=== PATIENT | female | born 1980 ===

== ENCOUNTER 2017-03-17 20:53 | Emergency (ER) | payer SELFPAY ==
[2017-03-17 22:11] LABS: Basophils % (Auto) 0.4 % (0.0-1.8); Eosinophils % (Auto) 1.7 % (0.0-4.3); Hematocrit 39.8 % (30.3-42.9); Hemoglobin 12.7 gm/dl (10.1-14.3); Mean Corpuscular HGB Conc 32 % (30-34); Mean Corpuscular Volume 81 fl (79-97); Platelet Count 230 K/mm3 (140-440); Red Blood Count 4.91 M/mm3 (3.65-5.03); White Blood Count 7.2 K/mm3 (4.5-11.0)
[2017-03-17 22:12] LABS: Mean Corpuscular Hemoglobin 26 pg (28-32)
[2017-03-17 22:19] LABS: Anion Gap 16 mmol/L; BUN/Creatinine Ratio 20; Blood Urea Nitrogen 14 mg/dL (7-17); Calcium 8.7 mg/dL (8.4-10.2); Carbon Dioxide 24 mmol/L (22-30); Chloride 99.1 mmol/L (98-107); Glucose 108 mg/dL (65-100); Potassium 3.8 mmol/L (3.6-5.0); Sodium 135 mmol/L (137-145)
[2017-03-18 00:14] LABS: Bacteria,Urine 2+ /HPF (Negative); Bilirubin,Urine NEG (Negative); Blood,Urine SM (Negative); Ketones,Urine NEG (Negative); Leukocyte Esterase,Urine NEG (Negative); Mucus,Urine FEW /HPF; Nitrite,Urine NEG (Negative); Protein,Urine <15 mg/dL mg/dL (Negative); Urobilinogen,Urine < 2.0 mg/dL (<2.0)
[2017-03-18] MEDS ORDERED: REGLAN IV ONE (03:38)
[2017-03-18] MEDS ORDERED: MORPHINE IV ONE (03:38)
[2017-03-18] MEDS ORDERED: DECADRON IV ONE (04:55)
--- NOTE | 2017-03-18 04:55 | Emergency Department Report ---
HPI - General Chief Complaint: Chest Pain Time Seen by Provider: 03/18/17 04:52 - HPI HPI: This is a 36-year-old aftermath female presents to the emergency department with a few different complaints. Patient says that over the past few days she has developed some upper respiratory type symptoms such as a mixed dry and productive cough, some head congestion and sinus pressure, wheezing. She believes that those upper respiratory symptoms then cause some chest pain. However the chest pain resolved earlier today. She also had some nausea and vomiting 2 at that time as well. Her main complaint at this point is a frontal headache that appears to be behind the eyes and the patient says it feels like the discomfort you get with a sinus infection. She denies any fever , chills, sweats, abdominal pain, dysuria, vaginal bleeding or discharge. She has taken some [id number] cough and pain medications without much relief. She has a past medical history of asthma, hypertension, sarcoidosis and Marfan syndrome. She has a primary care physician but has not seen them regarding her symptoms. No recent travel or sick contacts at home. ED Past Medical Hx - Past Medical History Hx Hypertension: Yes Hx Asthma: Yes Additional medical history: SARCODOSIS - Social History Smoking Status: Never Smoker Substance Use Type: None - Medications Home Medications: Home Medications Medication Instructions Recorded Confirmed Last Taken Type Fluticasone [Flonase] 1 spray NS BID #1 bottle 03/18/17 Unknown Rx ED Review of Systems ROS: Stated complaint: CHEST PAIN, SHORT OF BREATH, X 1 WEEK Other details as noted in HPI Comment: All other systems reviewed and negative Constitutional: denies: chills, fever Eyes: denies: eye pain, eye discharge, vision change ENT: congestion. denies: throat pain Respiratory: cough, wheezing Cardiovascular: chest pain. denies: edema Gastrointestinal: nausea, vomiting. denies: abdominal pain Genitourinary: denies: urgency, dysuria, discharge Musculoskeletal: denies: back pain, joint swelling, arthralgia Skin: denies: rash, lesions Neurological: headache. denies: numbness, paresthesias Physical Exam - Physical Exam Vital Signs: Vital Signs 03/17/17 03/18/17 03/18/17 21:14 00:50 02:43 Temperature 97.7 F 98.6 F 97.9 F Pulse Rate 67 72 68 Respiratory 18 18 14 Rate Blood Pressure 143/100 143/90 Blood Pressure 139/93 [Right] O2 Sat by Pulse 98 98 100 Oximetry 03/18/17 03/18/17 03/18/17 02:45 03:00 03:15 Temperature Pulse Rate 64 55 L 64 Respiratory 17 18 15 Rate Blood Pressure 143/94 136/85 131/89 Blood Pressure [Right] O2 Sat by Pulse 100 99 100 Oximetry 03/18/17 03/18/17 03/18/17 03:30 03:45 04:00 Temperature Pulse Rate 63 63 71 Respiratory 19 18 11 L Rate Blood Pressure 143/94 133/73 143/97 Blood Pressure [Right] O2 Sat by Pulse 100 99 99 Oximetry 03/18/17 04:05 Temperature Pulse Rate Respiratory 16 Rate Blood Pressure Blood Pressure [Right] O2 Sat by Pulse Oximetry Physical Exam: GENERAL: The patient is well-developed well-nourished. HENT: Normocephalic. Atraumatic. Patient has moist mucous membranes. EYES: Extraocular motions are intact. Pupils equal reactive to light bilaterally. No nystagmus. NECK: Supple. Trachea is midline. CHEST/LUNGS: Clear to auscultation. There is no respiratory distress noted. HEART/CARDIOVASCULAR: Regular. There is no tachycardia. There is no gallop rub or murmur. ABDOMEN: Abdomen is soft, nontender. Patient has normal bowel sounds. There is no abdominal distention. SKIN: Skins warm and dry. NEURO: The patient is awake, alert, and oriented. The patient is cooperative. The patient has no focal neurologic deficits. The patient has normal speech. Cranial nerves II through XII grossly intact. MUSCULOSKELETAL: There is no tenderness or deformity. There is no limitation range of motion. There is no evidence of acute injury. ED Course Vital Signs 03/17/17 03/18/17 03/18/17 21:14 00:50 02:43 Temperature 97.7 F 98.6 F 97.9 F Pulse Rate 67 72 68 Respiratory 18 18 14 Rate Blood Pressure 143/100 143/90 Blood Pressure 139/93 [Right] O2 Sat by Pulse 98 98 100 Oximetry 03/18/17 03/18/17 03/18/17 02:45 03:00 03:15 Temperature Pulse Rate 64 55 L 64 Respiratory 17 18 15 Rate Blood Pressure 143/94 136/85 131/89 Blood Pressure [Right] O2 Sat by Pulse 100 99 100 Oximetry 03/18/17 03/18/17 03/18/17 03:30 03:45 04:00 Temperature Pulse Rate 63 63 71 Respiratory 19 18 11 L Rate Blood Pressure 143/94 133/73 143/97 Blood Pressure [Right] O2 Sat by Pulse 100 99 99 Oximetry 03/18/17 04:05 Temperature Pulse Rate Respiratory 16 Rate Blood Pressure Blood Pressure [Right] O2 Sat by Pulse Oximetry ED Medical Decision Making - Lab Data Result diagrams: 03/17/17 21:47 03/17/17 21:47 - EKG Data -: EKG Interpreted by Me EKG shows normal: sinus rhythm, axis, intervals, QRS complexes, ST-T waves Rate: normal - EKG Data When compared to previous EKG there are: previous EKG unavailable Interpretation: normal EKG - Radiology Data Radiology results: image reviewed interpreted by me: Chest x-ray does not show any acute process. There are no pleural effusions, obvious pneumonia and there is no pneumothorax. No signs of a widened mediastinum. - Medical Decision Making The patient says that she had some upper respiratory type symptoms that led to some chest discomfort and she had some nausea and vomiting earlier but most of the symptoms have resolved. She still has a little bit of head congestion but now mostly complains of some pain to the frontal region of her head and behind her eyes and she says feels like a sinus infection. Her labs have been unremarkable including no leukocytosis, negative troponin 2 and no electrolyte abnormalities. Chest x-ray does not show any acute process. She does not have any focal, motor or sensory deficits. Her cranial nerves are intact. Vital signs stable throughout her ED course including being afebrile. She was given a dose of pain medication and upon reevaluation she says that she is feeling much improved and her headache is almost resolved. I do not believe that she has any signs of having a bacterial sinus infection but there still could be some inflammation in this region from a viral syndrome or upper respiratory infection. She'll be given a dose of Decadron and sent home with a prescription for Flonase. She has been encouraged to follow up with her primary care doctor in the next few days and return to the ER with any worsening of symptoms or any acute distress. Since she does not have any focal , motor or sensory deficits and she is showing improvement with her headache, did not feel that a CT scan of the head was warranted at this time. - Differential Diagnosis URI, sinusitis, tension headache, migraine Critical Care Time: No Critical care attestation.: If time is entered above; I have spent that time in minutes in the direct care of this critically ill patient, excluding procedure time. ED Disposition Clinical Impression: Headache Qualifiers: Headache type: unspecified Headache chronicity pattern: unspecified pattern Intractability: not intractable Qualified Code(s): R51 - Headache Chest pain Qualifiers: Chest pain type: unspecified Qualified Code(s): R07.9 - Chest pain, unspecified Upper respiratory infection Qualifiers: URI type: unspecified URI Qualified Code(s): J06.9 - Acute upper respiratory infection, unspecified Disposition: TO HOME OR SELFCARE Is pt being admited?: No Condition: Stable Instructions: Chest Pain (ED), Acute Headache (ED), Upper Respiratory Infection (ED) Additional Instructions: Please follow-up with your primary care physician in the next few days. Return to the emergency Department with any worsening of your symptoms or any acute distress. Prescriptions: Fluticasone [Flonase] 1 spray NS BID #1 bottle Referrals: NERISSA LOBATO PRACTLILI [Other] - 3-5 Days Time of Disposition: 05:00
[2017-03-18 05:15] VITALS: BP 147/85
--- NOTE | 2017-03-18 07:15 | XRay Report ---
ROUTINE CHEST, TWO VIEWS: HISTORY: chest pain. The trachea, heart, mediastinal contour, lung whyte and bony thorax are unremarkable. IMPRESSION: Unremarkable chest x-ray.
== END 2017-03-18 05:14 | disposition home or self-care (01) ==
LOC: ED 20:53
DX: J06.9 Acute upper respiratory infection, unspecified (principal); R51 Headache; I10 Essential (primary) hypertension
CPT/HCPCS: 36415; 71020; 80048; 81001; 84484; 85025; 93005; 93010; 96374; 96375; 99284; J1100; J2270; J2765